=== PATIENT | male | born 1990 ===

== ENCOUNTER 2021-07-03 09:18 | Emergency (ER) | payer BC ==
[2021-07-03] MEDS ORDERED: Lidocaine 1% w/Epinephrine 1:100K 20 ML VIAL ONE (10:14)
[2021-07-03] MEDS ORDERED: Fluorescein Opthalmic Strip ONE (10:14)
[2021-07-03] MEDS ORDERED: Boostrix 0.5 ML (Tdap) VIAL ONE (10:14)
[2021-07-03] MEDS ORDERED: Tetracaine 0.5% PF 4 ML BOT ONE (10:15)
== END 2021-07-03 11:19 | disposition home or self-care (01) ==
LOC: CSHERS 09:18
DX: S51.012A Laceration without foreign body of left elbow, initial encounter (principal); S50.811A Abrasion of right forearm, initial encounter; S60.415A Abrasion of left ring finger, initial encounter; S40.211A Abrasion of right shoulder, initial encounter; Z23 Encounter for immunization; W18.2XXA Fall in (into) shower or empty bathtub, initial encounter
CPT/HCPCS: 12031; 90471; 90715

== ENCOUNTER 2021-07-12 15:07 | Outpatient (CLI) | payer BC | END 2021-07-12 15:08 | disposition home or self-care (01) | LOC: CSHRAD 15:07 | PROVIDERS: ATTEND Student in an Organized Health Care Education/Training Program | DX: M79.641 Pain in right hand (principal); W19.XXXA Unspecified fall, initial encounter ==